=== PATIENT | female | born 1980 ===

== ENCOUNTER 2017-09-07 13:47 | Emergency (ER) | payer BC ==
[2017-09-07 14:00] VITALS: O2SAT 99
[2017-09-07] MEDS ORDERED: Aspirin 325 mg EC Tablets PO STA (14:15)
[2017-09-07 14:32] LABS: RBC URINE < 1 /hpf (0-3); URINE BACTERIA OCC (<OCC); URINE BILIRUBIN NEGATIVE (NEGATIVE); URINE BLOOD NEGATIVE (NEGATIVE); URINE COLOR Straw (YELLOW); URINE GLUCOSE (UA) NORMAL (Normal); URINE KETONE NEGATIVE (NEGATIVE); URINE LEUKOCYTE ESTERASE NEG Leu/uL (Negative); URINE PROTEIN NEGATIVE (NEGATIVE); URINE UROBILINOGEN NORMAL mg/dL (0.2-1.0); WBC URINE < 1 /hpf (0-5)
[2017-09-07 14:37] LABS: EOS % 0.3 % (0.0-4.0); HEMATOCRIT 42.7 % (34.0-47.0); LYMPH # 2.3 K/uL (1.0-4.3); LYMPH % 44.6 % (20.0-40.0); MEAN CELL VOLUME 93.7 fL (81.0-99.0); MEAN CORPUSCULAR HGB CONC 34.2 g/dL (33.0-37.0); MEAN PLATELET VOLUME 9.6 fL (7.2-11.7); MONO # 0.5 K/uL (0.0-0.8); MONO % 9.5 % (0.0-10.0); RED CELL DISTRIBUTION WIDTH 12.3 % (11.5-14.5); WHITE BLOOD COUNT 5.2 K/uL (4.8-10.8)
--- NOTE | 2017-09-07 14:38 | C.PDOC ---
History Of Present Illness 37yo female, with past medical history of hypertension, presents to ED with complaints of chest pressure. Patient states she has been taking Norvasc for her hypertension and has been feeling the chest pressure; she reports she saw her PMD 3 days ago who switched her to Metroprolol. Patient states after taking the Metroprolol, she had episodes of vomiting and dizziness. She states she started taking Norvasc again and has continued diffuse anterior chest pressure, also under her left breast. She deneis any radiation of her pain otherwise and also denies any shortness of breath, diaphoresis, fever, chills, abdominal pain. States this morning she was feeling better so she went out to jog and had increased chest pressure and reports "pounding" sensation in her chest; states she feels weak, which prompted her visit today. Of note, patient states she had labs as well as cardiac enzymes evaluated at her PMD which were all normal. Time Seen by Provider: 09/07/17 13:55 Chief Complaint (Nursing): Chest Pain History Per: Patient History/Exam Limitations: no limitations Onset/Duration Of Symptoms: Days Current Symptoms Are (Timing): Still Present Quality: Pressure Associated Symptoms: Nausea. denies: Diaphoresis Past Medical History Reviewed: Historical Data, Nursing Documentation, Vital Signs Vital Signs: Last Vital Signs Temp 97.9 F 09/07/17 15:37 Pulse 70 09/07/17 15:37 Resp 18 09/07/17 15:37 BP 124/82 09/07/17 15:37 Pulse Ox 99 09/07/17 15:37 - Medical History PMH: HTN Surgical History: No Surg Hx Family History: States: No Known Family Hx - Social History Hx Tobacco Use: No Hx Alcohol Use: No Hx Substance Use: No - Immunization History Hx Influenza Vaccination: No Hx Pneumococcal Vaccination: No Review Of Systems Except As Marked, All Systems Reviewed And Found Negative. Constitutional: Negative for: Fever, Chills, Sweats Cardiovascular: Positive for: Other (chest pressure) Respiratory: Negative for: Shortness of Breath Gastrointestinal: Positive for: Vomiting. Negative for: Nausea, Abdominal Pain Neurological: Positive for: Dizziness Physical Exam - Physical Exam Appears: Other (Uncomfortable) Skin: Normal Color, No Diaphoretic Head: Atraumatic, Normacephalic Cardiovascular: Rhythm Regular Respiratory: Normal Breath Sounds Gastrointestinal/Abdominal: Normal Exam, Soft, No Tenderness ED Course And Treatment - Laboratory Results Result Diagrams: 09/07/17 14:32 09/07/17 14:32 ECG: Interpreted By Me, Viewed By Me ECG Rhythm: Sinus Rhythm Rate From EC O2 Sat by Pulse Oximetry: 99 (RA) Medical Decision Making Medical Decision Making: Impression: Chest pressure in setting of changes in blood pressure medication Plan: -- Labs -- Adspirin 325 mg PO -- Motrin 600 mg PO -- Pepcid 20 mg PO Disposition - Disposition Referrals: Karsten Moran MD [Staff Provider] - Disposition: HOME/ ROUTINE Disposition Time: 16:03 Condition: STABLE Additional Instructions: Follow up with cardiology. Return to the ED with any further complaints. Instructions: Chest Pain (ED) Forms: General Discharge Instructions, [facility] ([place]), Work Excuse - Clinical Impression Clinical Impression: Chest pain - Scribe Statement The provider has reviewed the documentation as recorded by the Milanaibe Sachin Grimm Provider Attestation: All medical record entries made by the Scribe were at my direction and personally dictated by me. I have reviewed the chart and agree that the record accurately reflects my personal performance of the history, physical exam, medical decision making, and the department course for this patient. I have also personally directed, reviewed, and agree with the discharge instructions and disposition.
[2017-09-07 14:51] LABS: ALB/GLOB RATIO 1.5 (1.0-2.1); ALKALINE PHOSPHATASE 76 U/L (38-126); ALT/SGPT 37 U/L (9-52); AST/SGOT 23 U/L (14-36); BILIRUBIN,TOTAL 0.7 mg/dL (0.2-1.3); BLOOD UREA NITROGEN 10 mg/dL (7-17); CALCIUM 8.6 mg/dl (8.6-10.4); CARBON DIOXIDE 25 mmol/L (22-30); CHLORIDE 105 mmol/L (98-107); GFR AFRICAN-AMERICAN > 60; GLUCOSE,RANDOM 87 mg/dL (65-105); POTASSIUM 3.5 mmol/L (3.6-5.2); SODIUM 138 mmol/L (132-148); TOTAL PROTEIN 6.7 g/dL (6.3-8.3)
[2017-09-07 15:37] VITALS: BP 124/82; PULSE 70; RESP 18; TEMP 97.9
--- NOTE | 2017-09-10 12:18 | CARD ---
APPROVED REPORT EKG Measurement Heart [id number] <Conclusion> Normal sinus rhythm Normal ECG
== END 2017-09-07 15:45 | disposition home or self-care (01) ==
LOC: C.ER 13:47
DX: R07.9 Chest pain, unspecified (principal)